=== PATIENT | female | born 1955 | race Caucasian/White ===

== ENCOUNTER → 2024-02-08 11:18 | Outpatient (REF) | payer OTHER, SELFPAY | LOC: HWWDC 11:18 | PROVIDERS: ATTENDING PHYSICIAN Family Medicine; REFERRING PHYSICIAN Obstetrics & Gynecology | DX: Z12.31 Encounter for screening mammogram for malignant neoplasm of breast (principal) | CPT/HCPCS: 77063; 77067 ==

== ENCOUNTER → 2024-05-10 09:24 | Outpatient (REF) | payer OTHER, SELFPAY | LOC: HWRAD 09:24 | PROVIDERS: ATTENDING PHYSICIAN Family Medicine | DX: Z78.0 Asymptomatic menopausal state (principal) | CPT/HCPCS: 77080 ==

== ENCOUNTER → 2024-09-10 06:55 | Outpatient (REF) | payer OTHER, SELFPAY | LOC: MRI 06:55 | PROVIDERS: ATTENDING PHYSICIAN Student in an Organized Health Care Education/Training Program; FAMILY PHYSICIAN Family Medicine | DX: M25.561 Pain in right knee (principal) | CPT/HCPCS: 73721 ==

== ENCOUNTER → 2025-02-09 17:35 | Outpatient (REF) | payer OTHER, SELFPAY | LOC: WDC 17:35 | PROVIDERS: ATTENDING PHYSICIAN Family Medicine | DX: Z12.31 Encounter for screening mammogram for malignant neoplasm of breast (principal) | CPT/HCPCS: 77063; 77067 ==